=== PATIENT | female | born 1970 | race Caucasian/White ===

== ENCOUNTER 2016-09-25 08:50 | Emergency (ER) | payer BC ==
[2016-09-25 08:51] VITALS: BMI 29.2
[2016-09-25 09:06] VITALS: O2SAT 100
[2016-09-25] MEDS ORDERED: Sodium Chloride 0.9% 1,000 ML IV ONE (09:21)
--- NOTE | 2016-09-25 09:30 | C.PDOC ---
History Of Present Illness 45 yr old female presents to the ER with complaints of right sided flank/ abdominal pain for the past 5 days. Patient states she heels an urgency to move her bowels, has occasional chills and occasional diarrhea and constipation. Patient denies fever, nausea, vomiting, back pain, weakness or numbness. Time Seen by Provider: 09/25/16 09:00 Chief Complaint (Nursing): Abdominal Pain History Per: Patient History/Exam Limitations: no limitations Onset/Duration Of Symptoms: Days (5) Current Symptoms Are (Timing): Still Present Past Medical History Reviewed: Historical Data, Nursing Documentation, Vital Signs Vital Signs: Last Vital Signs Temp 97.9 F 09/25/16 11:39 Pulse 90 09/25/16 11:39 Resp 18 09/25/16 11:39 BP 131/81 09/25/16 11:39 Pulse Ox 100 09/25/16 12:15 - Medical History PMH: Anemia, Anxiety, Deep Vein Thrombosis (acute left lower extremity taking warfarin), Gastritis, HTN, Hypothyroidism, Migraine, TIA - [facility] Procedures INJECT/INFUSE ELECTROLYT (09/30/13) INJECT/INFUSE NEC (09/30/13) MAGNETIC RESONANCE IMAGING OF BRAIN AND BRAIN STEM (09/04/13) MRI OF OTHER AND UNSPECIFIED SITES (09/04/13) Family History: States: No Known Family Hx - Social History Hx Tobacco Use: No Hx Alcohol Use: No Hx Substance Use: No - Immunization History Hx Tetanus Toxoid Vaccination: No Hx Influenza Vaccination: No Hx Pneumococcal Vaccination: No Review Of Systems Except As Marked, All Systems Reviewed And Found Negative. Constitutional: Positive for: Chills. Negative for: Fever Gastrointestinal: Positive for: Abdominal Pain (right sided flank/abd pain ), Diarrhea. Negative for: Nausea, Vomiting, Constipation Musculoskeletal: Negative for: Back Pain Neurological: Negative for: Weakness, Numbness Physical Exam - Physical Exam Appears: Well, Non-toxic, No Acute Distress Skin: Warm, Dry, No Rash Head: Atraumatic, Normacephalic Eye(s): bilateral: Normal Inspection, PERRL, EOMI Oral Mucosa: Moist Chest: Symmetrical, No Tenderness Cardiovascular: Rhythm Regular, No Murmur Respiratory: Normal Breath Sounds, No Rales, No Rhonchi, No Wheezing Gastrointestinal/Abdominal: Normal Exam, Soft, No Tenderness, No Guarding, No Rebound Extremity: Normal ROM, No Swelling Neurological/Psych: Oriented x3, Normal Speech, Normal Motor Gait: Steady ED Course And Treatment - Laboratory Results Result Diagrams: 09/25/16 09:48 09/25/16 09:48 Lab Interpretation: No Acute Changes O2 Sat by Pulse Oximetry: 100 Pulse Ox Interpretation: Normal - CT Scan/US CT - Abd & Pelvis Other Rad Studies (CT/US): Read By Radiologist, Radiology Report Reviewed CT/US Interpretation: PROCEDURE: CT Abdomen and Pelvis without intravenous contrast. HISTORY: Pain. COMPARISON: None. TECHNIQUE: CT scan of the abdomen and pelvis was performed without administration of oral or intravenous contrast. Coronal and sagittal reformatted images were obtained. Radiation dose: Total exam DLP = 327.84 mGy-cm. This CT exam was performed using one or more of the following dose reduction techniques: Automated exposure control, adjustment of the mA and/or kV according to patient size, and/or use of iterative reconstruction technique. FINDINGS: LOWER THORAX: There is a 6 mm calcified granuloma in the superior segment of the right lower lobe. The lung bases are clear. LIVER: The liver is normal in size. There is no intrahepatic biliary ductal dilatation. GALLBLADDER AND BILE DUCTS: There are no calcified gallstones. PANCREAS: The pancreas is normal in size without calcifications or ductal dilatation. SPLEEN: Normal in size. ADRENALS: Both adrenal glands are normal in size without discrete nodule. KIDNEYS AND URETERS : Both kidneys are normal in size. There is a 3 mm nonobstructing stone in the right upper pole. There is no hydronephrosis. VASCULATURE: No aortic aneurysm. BOWEL: The small bowel loops are normal in caliber. The colon is unremarkable. APPENDIX: Normal appendix. PERITONEUM: There is no free fluid or free intraperitoneal air. LYMPH NODES: No enlarged lymph nodes. BLADDER: Partially decompressed. REPRODUCTIVE: There is an enlarged lobular fibroid uterus. BONES: No acute fracture. Within normal limits for the patient's age. OTHER FINDINGS: None. IMPRESSION: No acute abdominal or pelvic abnormality. Enlarged fibroid uterus. Progress Note: treated with IVF NSS and zofran. On re-evaluation abdomen soft, ambulating with steady gait, in no distress Reassessment Condition: Improved Medical Decision Making Medical Decision Making: PLAN: * CT - Abd & Pelvis * CBC * HCG Urine * Urinalysis * Sodium Chloride IV Disposition Counseled Patient/Family Regarding: Studies Performed, Diagnosis, Need For Followup, Rx Given - Disposition Referrals: [facility] [Outside] [facility] [Outside] Disposition: HOME/ ROUTINE Disposition Time: 12:30 Condition: GOOD Additional Instructions: Follow up with [facility]AL MOULDER'S ASSISTANT for further evaluation Prescriptions: Naproxen [Naprosyn] 1 tab PO BID PRN #25 tab PRN Reason: Pain Instructions: Abdominal Pain (ED), Uterine Fibroids (ED) - POA Present On Arrival: None - Clinical Impression Clinical Impression: Abdominal pain, Fibroids, Nausea and vomiting - PA / BOX COVERER HAND / Resident Statement MD/DO has reviewed & agrees with the documentation as recorded. - Scribe Statement The provider has reviewed the documentation as recorded by the Scribe Deanne Avila All medical record entries made by the Taliaibclayton were at my direction and personally dictated by me. I have reviewed the chart and agree that the record accurately reflects my personal performance of the history, physical exam, medical decision making, and the department course for this patient. I have also personally directed, reviewed, and agree with the discharge instructions and disposition.
[2016-09-25 09:38] LABS: RBC URINE < 1 /hpf (0-3); URINE BILIRUBIN NEGATIVE (NEGATIVE); URINE BLOOD 1+ (NEGATIVE); URINE COLOR Yellow (YELLOW); URINE GLUCOSE (UA) NORMAL (Normal); URINE KETONE NEGATIVE (NEGATIVE); URINE LEUKOCYTE ESTERASE NEG Leu/uL (Negative); URINE PROTEIN NEGATIVE (NEGATIVE); URINE UROBILINOGEN NORMAL mg/dL (0.2-1.0); WBC URINE 1 /hpf (0-5)
[2016-09-25 09:55] LABS: BASO # 0.1 K/uL (0.0-0.2); BASO % 1.2 % (0.0-2.0); EOS # 0.1 K/uL (0.0-0.7); EOS % 0.9 % (0.0-4.0); LYMPH # 1.2 K/uL (1.0-4.3); LYMPH % 19.8 % (20.0-40.0); MEAN CORPUSCULAR HGB CONC 30.6 g/dL (33.0-37.0); MONO # 0.5 K/uL (0.0-0.8); NRBC % 0.1 % (0.0-2.0); RED CELL DISTRIBUTION WIDTH 18.6 % (11.5-14.5); WHITE BLOOD COUNT 6.1 K/uL (4.8-10.8)
[2016-09-25 09:59] LABS: MEAN CELL VOLUME 75.4 fL (81.0-99.0)
[2016-09-25 10:14] LABS: CHLORIDE 101 mmol/L (98-107); POTASSIUM 3.6 mmol/L (3.6-5.2); SODIUM 140 mmol/L (132-148)
[2016-09-25 10:16] LABS: GFR AFRICAN-AMERICAN > 60
[2016-09-25 10:17] LABS: ALKALINE PHOSPHATASE 71 U/L (38-126); ALT/SGPT 13 U/L (9-52); AST/SGOT 24 U/L (14-36); BILIRUBIN,TOTAL 0.5 mg/dL (0.2-1.3); BLOOD UREA NITROGEN 17 mg/dL (7-17); CALCIUM 7.8 mg/dl (8.6-10.4); CARBON DIOXIDE 20 mmol/L (22-30); GLUCOSE,RANDOM 115 mg/dL (65-105)
[2016-09-25] MEDS ORDERED: Sodium Chloride 0.9% 1,000 ML ONE (10:28)
[2016-09-25 11:40] VITALS: BP 131/81; PULSE 90; RESP 18; TEMP 97.9
--- NOTE | 2016-09-25 12:01 | CT ---
PROCEDURE: CT Abdomen and Pelvis without intravenous contrast HISTORY: Pain COMPARISON: None. TECHNIQUE: CT scan of the abdomen and pelvis was performed without administration of oral or intravenous contrast. Coronal and sagittal reformatted images were obtained. Radiation dose: Total exam DLP = 327.84 mGy-cm. This CT exam was performed using one or more of the following dose reduction techniques: Automated exposure control, adjustment of the mA and/or kV according to patient size, and/or use of iterative reconstruction technique. FINDINGS: LOWER THORAX: There is a 6 mm calcified granuloma in the superior segment of the right lower lobe. The lung bases are clear. LIVER: The liver is normal in size. There is no intrahepatic biliary ductal dilatation. GALLBLADDER AND BILE DUCTS: There are no calcified gallstones. PANCREAS: The pancreas is normal in size without calcifications or ductal dilatation. SPLEEN: Normal in size. ADRENALS: Both adrenal glands are normal in size without discrete nodule. KIDNEYS AND URETERS: Both kidneys are normal in size. There is a 3 mm nonobstructing stone in the right upper pole. There is no hydronephrosis. VASCULATURE: No aortic aneurysm. BOWEL: The small bowel loops are normal in caliber. The colon is unremarkable. APPENDIX: Normal appendix. PERITONEUM: There is no free fluid or free intraperitoneal air. LYMPH NODES: No enlarged lymph nodes. BLADDER: Partially decompressed. REPRODUCTIVE: There is an enlarged lobular fibroid uterus. BONES: No acute fracture. Within normal limits for the patient's age OTHER FINDINGS: None. IMPRESSION: No acute abdominal or pelvic abnormality. Enlarged fibroid uterus.
== END 2016-09-25 12:35 | disposition home or self-care (01) ==
LOC: C.ER 08:50
DX: D25.9 Leiomyoma of uterus, unspecified (principal); R10.9 Unspecified abdominal pain; R11.2 Nausea with vomiting, unspecified
CPT/HCPCS: 74176; 80053; 81001; 83690; 84703; 85025; 96361; 96374; 99284; J2405; J7040

== ENCOUNTER 2016-11-13 16:03 | Emergency (ER) | payer BC ==
[2016-11-13 16:03] VITALS: BMI 29.2
[2016-11-13 16:32] VITALS: TEMP 98.1
[2016-11-13] MEDS ORDERED: Alum-Mag Hydrox-Simethicone Susp (30 mL) PO STA (16:57)
--- NOTE | 2016-11-13 17:02 | C.PDOC ---
History Of Present Illness 45 y/o female presents to the ED with complaints of chest pain around 1200 today. Pt reports midsternal pain followed by nausea and burping. Pt with history of GERD, takes medications for it. Patient reports she has not taken her GERD meds for a few days. Symptoms improved since episode. Denies fever, chills, vomiting, SOB, or any other complaints. Time Seen by Provider: 11/13/16 16:42 Chief Complaint (Nursing): Chest Pain History Per: Patient History/Exam Limitations: no limitations Onset/Duration Of Symptoms: Mins Current Symptoms Are (Timing): Better Severity: Moderate Quality: Pressure Associated Symptoms: Nausea Modifying Factors: None Alleviating Factors: None Recent travel outside of the [place]: No Past Medical History Reviewed: Historical Data, Nursing Documentation, Vital Signs Vital Signs: Last Vital Signs Temp 98.1 F 11/13/16 16:26 Pulse 82 11/13/16 18:44 Resp 16 11/13/16 18:44 BP 112/71 11/13/16 18:44 Pulse Ox 98 11/13/16 18:44 - Medical History PMH: Anemia, Anxiety, Deep Vein Thrombosis (acute left lower extremity taking warfarin), Gastritis, HTN, Hypothyroidism, Migraine, TIA Other Surgeries: thyroid - [facility] Procedures INJECT/INFUSE ELECTROLYT (09/30/13) INJECT/INFUSE NEC (09/30/13) MAGNETIC RESONANCE IMAGING OF BRAIN AND BRAIN STEM (09/04/13) MRI OF OTHER AND UNSPECIFIED SITES (09/04/13) Family History: States: Unknown Family Hx - Social History Hx Tobacco Use: No Hx Alcohol Use: No Hx Substance Use: No - Immunization History Hx Tetanus Toxoid Vaccination: No Hx Influenza Vaccination: No Hx Pneumococcal Vaccination: No Review Of Systems Except As Marked, All Systems Reviewed And Found Negative. Constitutional: Negative for: Fever Cardiovascular: Positive for: Chest Pain Respiratory: Negative for: Cough, Shortness of Breath Gastrointestinal: Positive for: Nausea, Other (burping). Negative for: Vomiting , Abdominal Pain Physical Exam - Physical Exam Appears: Non-toxic, No Acute Distress Skin: Warm, Dry, No Rash Head: Atraumatic, Normacephalic Neck: Normal, Normal ROM, Supple Chest: Symmetrical Cardiovascular: Rhythm Regular, No Murmur Respiratory: Normal Breath Sounds, No Rales, No Rhonchi, No Wheezing Gastrointestinal/Abdominal: Normal Exam, Soft, No Tenderness, No Guarding, No Rebound Extremity: Normal ROM Extremity: Bilateral: Atraumatic Neurological/Psych: Oriented x3, Normal Speech ED Course And Treatment - Laboratory Results Result Diagrams: 11/13/16 17:19 11/13/16 17:19 Lab Interpretation: No Acute Changes ECG: Interpreted By Me ECG Rhythm: Sinus Rhythm ECG Interpretation: No Acute Changes Rate From EC O2 Sat by Pulse Oximetry: 100 (room air) Pulse Ox Interpretation: Normal - Radiology CXR: Interpreted by Me CXR Interpretation: Yes: No Acute Disease - Other Rad No standard instances X-Ray: Read By Radiologist Interpretation: FINDINGS: LUNGS: No focal consolidation. 6 mm right lower lobe calcified granuloma. Please note that chest x-ray has limited sensitivity for the detection of pulmonary masses. PLEURA: No significant pleural effusion identified. No definite pneumothorax . CARDIOVASCULAR: The cardiomediastinal silhouette appears within normal limits of size. OSSEOUS STRUCTURES: No acute osseous abnormality identified. VISUALIZED UPPER ABDOMEN : Unremarkable. OTHER FINDINGS: None. IMPRESSION: No focal consolidation, significant pleural effusion, or definite pneumothorax identified. Progress Note: Plan: EKG, labs, CXR, UA, maalox, pepcid. Treated with IVF NSS and reglan for nausea. On re-evaluyation feeling better, lungs clear. Follow up with GI for further evaluation Reassessment Condition: Improved Disposition Counseled Patient/Family Regarding: Studies Performed, Diagnosis, Need For Followup, Rx Given - Disposition Referrals: Isidoro Chacko MD [Staff Provider] - Disposition: HOME/ ROUTINE Disposition Time: 19:00 Condition: IMPROVED Prescriptions: Sucralfate [Carafate] 1 gm PO TID #100 ml Instructions: Gastritis (ED), Esophageal Spasm (ED), Gastroesophageal Reflux Disease (ED), Diet for Ulcers and Gastritis (ED) - POA Present On Arrival: None - Clinical Impression Clinical Impression: Reflux gastritis, Chest pain - PA / AEROSPACE STRESS ENGINEER / Resident Statement MD/DO has reviewed & agrees with the documentation as recorded. - Scribe Statement The provider has reviewed the documentation as recorded by the Taliaibclayton Day All medical record entries made by the Scribe were at my direction and personally dictated by me. I have reviewed the chart and agree that the record accurately reflects my personal performance of the history, physical exam, medical decision making, and the department course for this patient. I have also personally directed, reviewed, and agree with the discharge instructions and disposition.
[2016-11-13] MEDS ORDERED: Alum-Mag Hydrox-Simethicone Susp (30 mL) ONE (17:12)
[2016-11-13 17:24] LABS: BASO # 0.1 K/uL (0.0-0.2); BASO % 0.9 % (0.0-2.0); EOS % 0.1 % (0.0-4.0); HEMATOCRIT 36.5 % (34.0-47.0); LYMPH % 9.3 % (20.0-40.0); MEAN CORPUSCULAR HEMOGLOBIN 23.8 pg (27.0-31.0); MEAN CORPUSCULAR HGB CONC 31.3 g/dL (33.0-37.0); MEAN PLATELET VOLUME 8.2 fL (7.2-11.7); MONO # 0.3 K/uL (0.0-0.8); MONO % 2.8 % (0.0-10.0); PLATELET COUNT 389 K/uL (130-400); RED CELL DISTRIBUTION WIDTH 20.9 % (11.5-14.5)
[2016-11-13 17:30] LABS: WHITE BLOOD COUNT 10.6 K/uL (4.8-10.8)
[2016-11-13 17:33] LABS: CHLORIDE 102 mmol/L (98-107); POTASSIUM 5.3 mmol/L (3.6-5.2); SODIUM 135 mmol/L (132-148)
[2016-11-13 17:35] LABS: ALKALINE PHOSPHATASE 83 U/L (38-126); AST/SGOT 44 U/L (14-36); BILIRUBIN,TOTAL 0.7 mg/dL (0.2-1.3); CARBON DIOXIDE 20 mmol/L (22-30); GFR AFRICAN-AMERICAN > 60; TOTAL PROTEIN 8.4 g/dL (6.3-8.3)
[2016-11-13 17:36] LABS: ALT/SGPT 23 U/L (9-52); BLOOD UREA NITROGEN 16 mg/dL (7-17); CALCIUM 8.2 mg/dl (8.6-10.4); GLUCOSE,RANDOM 107 mg/dL (65-105)
[2016-11-13] MEDS ORDERED: Sodium Chloride 0.9% 1,000 ML IV ONE (17:52)
[2016-11-13] MEDS ORDERED: Sodium Chloride 0.9% 1,000 ML ONE (17:57)
--- NOTE | 2016-11-13 17:58 | RAD ---
HISTORY: SOB COMPARISON: Chest x-ray performed 03/31/14 TECHNIQUE: Chest PA and lateral FINDINGS: LUNGS: No focal consolidation. 6 mm right lower lobe calcified granuloma. Please note that chest x-ray has limited sensitivity for the detection of pulmonary masses. PLEURA: No significant pleural effusion identified. No definite pneumothorax . CARDIOVASCULAR: The cardiomediastinal silhouette appears within normal limits of size. OSSEOUS STRUCTURES: No acute osseous abnormality identified. VISUALIZED UPPER ABDOMEN: Unremarkable. OTHER FINDINGS: None. IMPRESSION: No focal consolidation, significant pleural effusion, or definite pneumothorax identified.
[2016-11-13 18:44] VITALS: BP 112/71; PULSE 82; RESP 16
[2016-11-13 18:47] VITALS: O2SAT 100
[2016-11-13 19:15] LABS: NEUTROPHIL 83 % (50-75); TOTAL CELLS COUNTED 100
--- NOTE | 2016-11-21 01:28 | CARD ---
APPROVED REPORT EKG Measurement Heart [id number] ID [id number] <Conclusion> Normal sinus rhythm Prolonged QT Abnormal ECG
== END 2016-11-13 19:02 | disposition home or self-care (01) ==
LOC: C.ER 16:03
DX: K21.9 Gastro-esophageal reflux disease without esophagitis (principal); R07.89 Other chest pain
CPT/HCPCS: 71020; 80053; 82553; 83690; 84484; 85025; 93005; 96361; 96374; 96375; 99284; J2765; J7040

== ENCOUNTER 2017-01-04 21:02 | Emergency (ER) | payer BC ==
[2017-01-04 21:03] VITALS: BMI 29.2
[2017-01-04 21:31] VITALS: O2SAT 100
[2017-01-04] MEDS ORDERED: Sodium Chloride 0.9% 1,000 ML IV ONE (21:39)
[2017-01-04] MEDS ORDERED: DiphenhydrAMINE 50 mg/ml Inj IVP STA (21:40)
--- NOTE | 2017-01-04 21:42 | C.PDOC ---
History Of Present Illness 46 yo female, hx of hypothryoid, presents with bacon/vomiting/diarrhea. as per pt, has had symptoms x 3 days. pt states she ran out of her calcium supplement. pt states she was able to restart it, and is unsure if this is related, and her calcium was low. no fevers, no cp, cough, or other complaints Time Seen by Provider: 01/04/17 21:35 Chief Complaint (Nursing): Headache Past Medical History Reviewed: Historical Data, Nursing Documentation, Vital Signs Vital Signs: Last Vital Signs Temp 99.2 F 01/04/17 21:26 Pulse 100 H 01/04/17 21:26 Resp 20 01/04/17 21:26 BP 137/83 01/04/17 21:26 Pulse Ox 100 01/04/17 22:46 - Medical History PMH: Anemia, Anxiety, Deep Vein Thrombosis (acute left lower extremity taking warfarin), Gastritis, HTN, Hypothyroidism, Migraine, TIA Denies: Depression, Chronic Kidney Disease - [facility] Procedures INJECT/INFUSE ELECTROLYT (09/30/13) INJECT/INFUSE NEC (09/30/13) MAGNETIC RESONANCE IMAGING OF BRAIN AND BRAIN STEM (09/04/13) MRI OF OTHER AND UNSPECIFIED SITES (09/04/13) Family History: States: Unknown Family Hx - Social History Hx Tobacco Use: No Hx Alcohol Use: No Hx Substance Use: No - Immunization History Hx Tetanus Toxoid Vaccination: No Hx Influenza Vaccination: No Hx Pneumococcal Vaccination: No Review Of Systems Except As Marked, All Systems Reviewed And Found Negative. Gastrointestinal: Positive for: Nausea, Diarrhea Neurological: Positive for: Headache Physical Exam - Physical Exam Appears: Well, No Acute Distress, Other (anxious appearing) Skin: Normal Color, Warm, Dry Eye(s): bilateral: Normal Inspection, PERRL, EOMI Nose: Normal Throat: Normal Neck: Normal Cardiovascular: Rhythm Regular Respiratory: Normal Breath Sounds Gastrointestinal/Abdominal: Normal Exam, Soft, No Tenderness, No Guarding, No Rebound Back: Normal Inspection Extremity: Normal ROM ED Course And Treatment - Laboratory Results Result Diagrams: 01/04/17 22:22 01/04/17 22:22 O2 Sat by Pulse Oximetry: 100 Medical Decision Making Medical Decision Making: r/o metabolic, hypocalcemia etiology- lasb imaging pending 1050: pt states all symptoms resolved. neuro intact. edenilson 8.4.pt requesting to be d/c. advise outpt f/u and return precautions Disposition - Disposition Referrals: [facility] [Outside] [facility] [Outside] [facility] [Outside] Disposition: HOME/ ROUTINE Disposition Time: 22:45 Condition: STABLE Additional Instructions: please follow up with your doctor. return to er with worsening symptoms or concerns. Instructions: Acute Diarrhea (ED), Acute Headache (ED) - Clinical Impression Clinical Impression: Headache, Diarrhea
[2017-01-04 22:18] LABS: RBC URINE 2 /hpf (0-3); URINE BACTERIA OCC (<OCC); URINE BILIRUBIN NEGATIVE (NEGATIVE); URINE BLOOD NEGATIVE (NEGATIVE); URINE COLOR Yellow (YELLOW); URINE GLUCOSE (UA) NORMAL (Normal); URINE KETONE NEGATIVE (NEGATIVE); URINE LEUKOCYTE ESTERASE NEG Leu/uL (Negative); URINE PROTEIN NEGATIVE (NEGATIVE); URINE UROBILINOGEN NORMAL mg/dL (0.2-1.0); WBC URINE < 1 /hpf (0-5)
[2017-01-04] MEDS ORDERED: Sodium Chloride 0.9% 1,000 ML ONE (22:19)
[2017-01-04] MEDS ORDERED: DiphenhydrAMINE 50 mg/ml Inj ONE (22:19)
[2017-01-04 22:25] LABS: BASO # 0.1 K/uL (0.0-0.2); BASO % 0.9 % (0.0-2.0); EOS % 0.3 % (0.0-4.0); LYMPH # 1.3 K/uL (1.0-4.3); LYMPH % 13.1 % (20.0-40.0); MEAN CELL VOLUME 75.5 fL (81.0-99.0); MEAN CORPUSCULAR HEMOGLOBIN 23.9 pg (27.0-31.0); MEAN CORPUSCULAR HGB CONC 31.6 g/dL (33.0-37.0); MEAN PLATELET VOLUME 8.5 fL (7.2-11.7); MONO # 0.4 K/uL (0.0-0.8); MONO % 3.7 % (0.0-10.0); RED CELL DISTRIBUTION WIDTH 18.3 % (11.5-14.5); WHITE BLOOD COUNT 10.3 K/uL (4.8-10.8)
[2017-01-04 22:33] LABS: CHLORIDE 102 mmol/L (98-107); SODIUM 139 mmol/L (132-148)
[2017-01-04 22:34] LABS: POTASSIUM 3.9 mmol/L (3.6-5.2)
[2017-01-04 22:36] LABS: ALKALINE PHOSPHATASE 100 U/L (38-126); AST/SGOT 21 U/L (14-36); BILIRUBIN,TOTAL 0.4 mg/dL (0.2-1.3); BLOOD UREA NITROGEN 12 mg/dL (7-17); CARBON DIOXIDE 20 mmol/L (22-30); GFR AFRICAN-AMERICAN > 60; GLUCOSE,RANDOM 129 mg/dL (65-105)
[2017-01-04 22:37] LABS: ALT/SGPT 28 U/L (9-52); CALCIUM 8.4 mg/dl (8.6-10.4)
[2017-01-04 23:15] VITALS: BP 105/70; PULSE 84; RESP 16; TEMP 97.8
== END 2017-01-04 23:15 | disposition home or self-care (01) ==
LOC: C.ER 21:02
DX: R51 Headache (principal); R19.7 Diarrhea, unspecified
CPT/HCPCS: 80053; 81001; 83690; 84703; 85025; 85610; 85730; 96361; 96374; 96375; 99285; J1200; J2765; J7040